=== PATIENT | male | born 1970 | race Caucasian/White ===

== ENCOUNTER → 2020-01-13 | Outpatient (CLI) | payer OTHER ==
--- NOTE | 2020-01-13 09:28 | RAD ---
EXAM: CT Chest without IV contrast INDICATION: Reason: left sided chest wall pain x 1 year / Spl. Instructions: non smoker, no history / History: TECHNIQUE: Multi-detector row CT images were acquired from the thoracic inlet through the upper abdomen without the use of IV contrast. Sagittal and coronal images were acquired from the transaxial data. All CT scans performed at this facility utilize dose optimization techniques as appropriate to the exam, including the following: Automated exposure control and adjustment of the mA and/or KV according to patient size (this includes techniques or standardized protocols for targeted exams where dose is indication/reason for exam). COMPARISON: None FINDINGS: The absence of IV contrast limits evaluation of soft tissue pathology. CARDIOVASCULAR: Unremarkable MEDIASTINUM & IMAN: No adenopathy or masses. LUNGS: No pulmonary infiltrate, nodule, or other focal abnormality. PLEURAL SPACE: No pleural effusions or pneumothorax. OSSEOUS & SOFT TISSUE: Sternal body and manubrium are fused. No acute or aggressive osseous lesions are present. Mild disc degenerative changes in the lower thoracic spine are present. Lack of intrathecal contrast limits detailed assessment of the spinal canal. ABDOMEN: The visualized portions of the upper abdomen are unremarkable. IMPRESSION: 1. Unremarkable CT of the chest. No specific findings to explain left chest wall pain. 2. If patient's chest wall pain is suspected to be from neuritis/neuropathy, additional imaging of the thoracic spine could be considered in further evaluation with MRI. Electronically signed by: Los Shankar MD (01/13/2020 9:25 AM) [id number]
== END ==
LOC: CT 07:42
PROVIDERS: ATTEND Physician Assistant Medical
DX: R07.89 Other chest pain (principal)
CPT/HCPCS: 71250

== ENCOUNTER → 2020-05-02 | Outpatient (CLI) | payer OTHER ==
[2020-05-02 10:46] LABS: ALBUMIN 3.8 g/dL (3.4-5.0); C REACTIVE PROTEIN 2.6 mg/L (0-3.3); CALCIUM 8.7 mg/dL (8.5-10.1); GFR 79.4; POTASSIUM 4.7 mmol/L (3.5-5.1); TOTAL BILIRUBIN 0.5 mg/dL (0.2-1.0); TOTAL PROTEIN 7.6 g/dL (6.4-8.2)
[2020-05-02 20:39] LABS: THYROID STIM HORMONE (TSH) 1.769 uIU/mL (0.358-3.740)
[2020-05-03 05:41] LABS: HEMOGLOBIN A1C 5.9 % (4.8-5.6)
== END ==
LOC: LAB 09:09
PROVIDERS: ATTEND Family Medicine
DX: E11.9 Type 2 diabetes mellitus without complications (principal); I10 Essential (primary) hypertension; E78.5 Hyperlipidemia, unspecified; R42 Dizziness and giddiness; Z68.38 Body mass index [BMI] 38.0-38.9, adult
CPT/HCPCS: 36415; 80053; 80061; 83036; 84443; 86140

== ENCOUNTER → 2021-01-06 | Outpatient (CLI) | payer OTHER ==
[2021-01-06 16:16] LABS: BASO % 1 % (0-3); EOS # 0.2 x10^3/uL (0.0-0.7); EOS % 3 % (0-3); HEMATOCRIT 50.2 % (39.0-53.0); HEMOGLOBIN 16.7 g/dL (13.0-17.5); LYMPH # 2.2 x10^3/uL (1.0-4.8); LYMPH % 24 % (24-48); MEAN CORPUSCULAR HEMOGLOBIN 31 pg (25-35); MEAN CORPUSCULAR HGB CONC 33 g/dL (31-37); MEAN CORPUSCULAR VOLUME 92 fL (79-100); MONO # 0.8 x10^3/uL (0.0-1.1); MONO % 8 % (0-9); NEUT # 6.2 x10^3uL (1.8-7.7); NEUT % 66 % (31-73); PLATELET COUNT 214 x10^3/uL (140-400); RED BLOOD COUNT 5.49 x10^6/uL (4.30-5.70); RED CELL DISTRIBUTION WIDTH 14.3 % (11.5-14.5); WHITE BLOOD COUNT 9.4 x10^3/uL (4.0-11.0)
[2021-01-06 16:36] LABS: ALBUMIN/GLOBULIN RATIO 1.1 (1.0-1.7); CALCIUM 9.1 mg/dL (8.5-10.1); CREATININE 0.9 mg/dL (0.7-1.3); GFR 89.7; POTASSIUM 4.2 mmol/L (3.5-5.1); TOTAL BILIRUBIN 0.3 mg/dL (0.2-1.0); TOTAL PROTEIN 7.7 g/dL (6.4-8.2); URIC ACID 4.9 mg/dL (3.5-7.2)
[2021-01-06 17:23] LABS: SEDIMENTATION RATE 3 (0-15)
[2021-01-07 00:07] LABS: RHEUMATOID FACTOR <10.0 IU/mL (0.0-13.9)
[2021-01-07 15:20] LABS: FREE T4 0.86 ng/dL (0.76-1.46); THYROID STIM HORMONE (TSH) 1.567 uIU/mL (0.358-3.740)
[2021-01-07 19:11] LABS: ANA INTERP Positive (.)
== END ==
LOC: LAB 14:44
PROVIDERS: ATTEND Physician Assistant Medical
DX: E78.5 Hyperlipidemia, unspecified (principal); M25.50 Pain in unspecified joint; R73.09 Other abnormal glucose; Z83.3 Family history of diabetes mellitus
CPT/HCPCS: 36415; 80053; 80061; 84439; 84443; 84550; 85025; 85651; 86038; 86140; 86431